=== PATIENT | male | born 1975 | race Caucasian/White ===

== ENCOUNTER 2020-09-21 01:50 | Observation (INO) | payer BC ==
[~2020-09-21] VITALS: Ht 170.2 cm; Wt 79.4 kg
[2020-09-21 02:08] VITALS: BP 171/92
[2020-09-21] MEDS ORDERED: LIPITOR40 MG PO (02:11)
[2020-09-21] MEDS ORDERED: LISINOPRIL20 MG PO (02:11)
[2020-09-21] MEDS ORDERED: ALLEGRA ALLERG180 MG PO (02:11)
[2020-09-21 02:41] LABS: URINE BILIRUBIN NEGATIVE (Negative); URINE BLOOD TRACE (Negative); URINE CLARITY CLEAR; URINE COLOR YELLOW; URINE GLUCOSE-RANDOM NEGATIVE (Negative); URINE KETONES NEGATIVE (Negative); URINE LEUKOCYTES-REFLEX NEGATIVE (Negative); URINE NITRITE-REFLEX NEGATIVE (Negative); URINE PROTEIN NEGATIVE (Negative); URINE SPECIFIC GRAVITY >= 1.030 (1.005-1.030); URINE UROBILINOGEN 0.2 E.U./dl (0.2-1.0)
[2020-09-21 02:48] LABS: HEMATOCRIT 45.1 % (42.0-52.0); HEMOGLOBIN 15.6 gm/dL (14.0-18.0); MCH 31.2 pg (26.0-34.0); MCHC 34.6 g/dL (28.0-37.0); MPV 8.9 fl. (7.2-11.1); NUCLEATED RBCS 0 /100WBC; PLATELET COUNT* 157 thou/uL (150-400); RBC 5.01 mil/uL (4.50-6.00); RDW-CV 13.6 % (10.5-14.5); WBC 10.6 thou/uL (4.0-11.0)
[2020-09-21 02:48] LABS: AMP/METHAMP Negative (Negative); BARBITURATES Negative (Negative); BENZODIAZEPINES Negative (Negative); COCAINE Negative (Negative); METHADONE Negative (Negative); PCP Negative (Negative); THC Negative (Negative)
[2020-09-21 02:51] LABS: CALCIUM 9.6 mg/dL (8.5-10.1); POTASSIUM 3.6 mmol/L (3.5-5.1)
[2020-09-21 02:56] LABS: ALBUMIN 4.4 g/dL (3.4-5.0); TOTAL BILIRUBIN 0.7 mg/dL (<0.1-1.0); TOTAL PROTEIN 8.6 g/dL (6.4-8.2)
[2020-09-21 03:22] LABS: OPIATES Negative (Negative)
[2020-09-21 03:35] VITALS: BP 130/89
[2020-09-21 04:18] LABS: ABSOLUTE BASOPHILS 0.1 thou/uL (0.0-0.2); ABSOLUTE LYMPHOCYTES 0.6 thou/uL (0.8-5.3); ABSOLUTE MONOCYTES 0.2 thou/uL (0.0-1.2); ABSOLUTE NEUTROPHILS 9.6 thou/uL (1.6-8.1)
[2020-09-21 04:19] LABS: GIANT PLATELETS OCCASIONAL; PLATELET ESTIMATE ADEQUATE
[2020-09-21 09:19] VITALS: BP 127/79
[2020-09-21 11:17] VITALS: BP 141/91
--- NOTE | 2020-09-21 15:04 | NUR ---
APPROX 0930 PATIENT ARRIVED TO FLOOR FROM ER VIA GURNEY AND TAKEN TO ROOM 308. VS 163/105 97.7-105-28-98% STATING PAIN IN RUQ IS 1010. CALLED PLACED TO DR. BHAGAT'S OFFICE TO HAVE HIM PAGED FOR PAIN MEDICATION ORDERS. [address]URN CALL AND DR. BHAGAT'S WAS PAGED AGAIN. VS 141/91-97.8-107-24-95% STILL WITH C/O PAIN 06/25. DR. BHAGAT RETURNED CALL AND ORDERS WERE REC'D FOR FENTANYL 25MCG Q4H IVP PRN PAIN, AND ONDANSETRON 4MG IVP Q6H PRN N/V. 1200 RADIOLOGY HERE TO OBTAIN ABD ULTRASOUND. AND FENTANYL 25 MCG/ ONDANSETRON 4MG IVP GIVEN IVP 1330 PATIENT SLEEPING SOUNDLY, RESPIRATIONS EASY AND UNLABORED. 1500 PATIENT TAKEN TO PRE-OP FOR LAP MARTHA BY DR. COX.
--- NOTE | 2020-09-21 16:31 | EKG ---
[place] [address] ELECTROCARDIOGRAM REPORT Name: RENETTACARMELITA MCHUGH Room: [address]#: [id number] Admission: 09/21/20 Attend Phys: Ismael Alamo MD Discharge: Date of : 75 Date of Service: 09/21/207 Report #: [id number] THIS REPORT FOR: //name// [facility] ED Test Date: 2020-09-21 Test Time: 02:17:29 Pat Name: CARMELITA PORRAS Department: Room: [facility] Gender: M Senior Office Support Assistant Sosa: [place] : 1975 Requested By: Bambi Ortiz Order Number: [id number] MD: Royal Sosa Measurements Intervals [place] Rate: 74 P: 52 WI: 169 QRS: 44 QRSD: 94 T: 52 QT: 374 QTc: 415 Interpretive Statements Sinus rhythm Consider left ventricular hypertrophy No previous ECG available for comparison Electronically Signed On 09-21-2020 16:31:19 QUALITATIVE FIELD COORDINATOR by Royal Sosa [email or web address] <ELECTRONICALLY SIGNED> By: Royal Sosa MD, [facility] 09/21/20 1631 6 Royal Sosa MD, [facility] /EPI
--- NOTE | 2020-09-21 18:54 | NUR ---
1814 PATIENT RETURNED TO ROOM 308 FROM OR IN GOOD CONDITION. VS 129/78-98.5-115-17-95% ON 2LPM/NC. AT BEDSIDE, REPORT REC'D FROM PACU NURSE MICHAEL. D5 / NS WITH 20 K+ AT 100CC/HR HUNG TO SITE IN RIGHT A/C. PATIENT RESTING QUIETLY AND HAS ICE CHIPS AT THE BEDSIDE.
[2020-09-21 19:45] VITALS: BP 126/69
[2020-09-22] VITALS: BP 117/72
[2020-09-22 04:45] VITALS: BP 128/81
--- NOTE | 2020-09-22 05:49 | NUR ---
PT SLEPT FAIRLY WELL OVERNIGHT. RECEIVING TYLENOL ONCE FOR PAIN WITH GOOD RESULT. O2 2L OVERNIGHT TO KEEP SATS GREATER THAN 92%. IVF INFUSING PER PUMP. ABD LAP SITES WITH DERMABOND CDI.VOIDING WITHOUT DIFFICULTY, TOLERATING LIQUIDS OVERNIGHT WITHOUT N/V. HOPEFUL FOR DISCHARGE TODAY.
[2020-09-22 08:58] LABS: ABSOLUTE LYMPHOCYTES 0.8 thou/uL (0.8-5.3); ABSOLUTE MONOCYTES 0.7 thou/uL (0.0-1.2); ABSOLUTE NEUTROPHILS 9.2 thou/uL (1.6-8.1); BASOPHILS 0.3 %; EOSINOPHILS 0.1 %; HEMATOCRIT 39.3 % (42.0-52.0); LYMPHOCYTES 7.8 %; MCH 30.7 pg (26.0-34.0); MCHC 33.6 g/dL (28.0-37.0); MCV 91.4 fL (80.0-100.0); MONOCYTES 6.4 %; MPV 8.8 fl. (7.2-11.1); NUCLEATED RBCS 0 /100WBC; PLATELET COUNT* 111 thou/uL (150-400); POLYS 85.4 %; RDW-CV 13.8 % (10.5-14.5); WBC 10.8 thou/uL (4.0-11.0)
[2020-09-22 09:00] LABS: HEMOGLOBIN 13.2 gm/dL (14.0-18.0)
[2020-09-22 09:05] LABS: CALCIUM 8.9 mg/dL (8.5-10.1); POTASSIUM 3.9 mmol/L (3.5-5.1)
[2020-09-22 09:08] LABS: ALBUMIN 3.2 g/dL (3.4-5.0); PHOSPHORUS* 2.2 mg/dL (2.5-4.9)
[2020-09-22 09:30] VITALS: BP 126/81
[2020-09-22] MEDS ORDERED: NORCO 10-325 T1 EACH PO (09:53)
[2020-09-22 14:08] VITALS: BP 126/81
[2020-09-22 15:38] VITALS: BP 126/81
--- NOTE | 2020-09-22 15:39 | NUR ---
PATIENT GIVEN DISCHARGE INSTRUCTIONS, PRESCRIPTION FOR NORCO, AND POST OP INSTRUCTIONS. PATIENT DENIES QUESTIONS/CONCERNS PRIOR TO D/C. IV REMOVED. PATIENT LEFT UNIT VIA WHEELCHAIR WITH PERSONAL BELONGINS ACCOMPANIED BY NURSING STAFF AND AT APPROX. 1455.
--- NOTE | 2020-09-22 15:43 | NUR ---
Pt is A&O. Resides at home with and kids.Active and independent. No DME. No hx of HH or SNF. Goal is home at dc, no needs anticipated.
--- NOTE | 2020-09-26 18:06 | PATH ---
[address] [address] PATHOLOGY RPT PROCEDURE Name: RENETTAIQRAJOSE NELSON Room: [address] Nurys Escobar#: [id number] Admission: 09/21/20 Date of : 75 Discharge: 09/22/20 Report #: [id number] Path Case #: [id number] [facility] Accession Number: [id number] . 01 Material submitted: . gallbladder - GALLBLADDER AND CONTENTS . 01 Clinical history: . ABDOMINAL PAIN, CHOLECYSTITIS LAPAROSCOPIC CHOLECYSTECTOMY . 02 Diagnosis: Gallbladder and contents: - Chronic and acute gangrenous cholecystitis with benign lymph node. (JOEL:noemi; 09/26/2020) S 09/26/2020 1344 Local . 02 Comment: . . 02 Electronically signed: . Praful Bower MD, Pathologist NPI- [id number] . 01 Gross description: . Received in formalin labeled "Jose Porras, gallbladder and contents" is a previously opened cholecystectomy specimen measuring 7.1 x 3.2 x 2.8 cm. The serosa is smooth, cosby-brown with a roughened hepatic bed. The specimen is opened to reveal velvety, brown-green mucosa without polyps or masses. The average wall thickness is 0.4 cm. A possible lymph node measuring 0.4 x 0.3 x 0.3 cm is present and no calculi are identified. Auto Tester sections of the fundus, body, lymph node (entirely submitted) and the cystic duct margin are submitted in A1. ([facility]; 09/23/2020) GZA/GZA 09/26/2020 1723 Local . 02 Pathologist provided ICD-10: K81.2 . 02 CPT . 947520 Specimen Comment: A courtesy copy of this report has been sent to [phone], [phone] Specimen Comment: [phone] Specimen Comment: Report sent to ,DR BHAGAT / DR RAY Performed at: [address] [facility] [place] [address] [id number] MD Fredrick Burleson MD Phone: [phone] [place] [address] PATHOLOGY RPT PROCEDURE Name: JOSE PORRAS Room: [address] Nurys Escobar#: [id number] Admission: 09/21/20 Date of : 75 Discharge: 09/22/20 Report #: [id number] Path Case #: [id number] Performed at: 02 [facility] Wilmar Snow [address], [place] [id number] MD Praful Bower MD Phone: [phone]
== END 2020-09-22 14:55 | disposition home or self-care (01) ==
LOC: M.ERS 01:50 → M.TBA-ER 05:38 → M.3W 05:38
PROVIDERS: Personal Emergency Response Attendant; Surgery; ADMIT Surgery; ATTEND Surgery
DX: K81.0 Acute cholecystitis (principal); I10 Essential (primary) hypertension; E78.00 Pure hypercholesterolemia, unspecified; E78.5 Hyperlipidemia, unspecified; Z79.899 Other long term (current) drug therapy; Z20.828 Contact with and (suspected) exposure to other viral communicable diseases